=== PATIENT | male | born 2005 | race Caucasian/White ===

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

== ENCOUNTER 2023-08-20 09:24 | Emergency (ER) | payer OTHER ==
[~2023-08-20] VITALS: Ht 170.2 cm; Wt 72.6 kg
[~2023-08-20 09:24] MED LIST changes: +GUAI600T33 PO; +NASAL DECONGEST30 ML; +TRAZ50 PO
[2023-08-20 12:22] VITALS: BP 126/77
== END 2023-08-20 12:20 | disposition home or self-care (01) ==
LOC: ER 09:24
DX: R51.9 Headache, unspecified (principal); R11.0 Nausea; F10.99 Alcohol use, unspecified with unspecified alcohol-induced disorder; F17.200 Nicotine dependence, unspecified, uncomplicated; F12.90 Cannabis use, unspecified, uncomplicated; J45.909 Unspecified asthma, uncomplicated; G47.00 Insomnia, unspecified; F90.9 Attention-deficit hyperactivity disorder, unspecified type; Z79.899 Other long term (current) drug therapy; Z88.8 Allergy status to other drugs, medicaments and biological substances; Z87.828 Personal history of other (healed) physical injury and trauma
CPT/HCPCS: 96361; 96374; 96375; 99283-25; J1885; J2405; J7030

== ENCOUNTER 2023-10-27 19:55 | Emergency (ER) | payer OTHER ==
[~2023-10-27] VITALS: Ht 167.6 cm; Wt 54.4 kg
[2023-10-27 20:30] LABS: BASOPHILS ABSOLUTE AUTO 0.04 K/mm3 (0.00-0.23); BASOPHILS PERCENT AUTO 0 % (0-2); EOSINOPHILS ABSOLUTE AUTO 0.15 K/mm3 (0.00-0.68); EOSINOPHILS PERCENT AUTO 1 % (0-6); Hematocrit 41.9 % (37.0-53.0); Hemoglobin 14.3 g/dL (13.5-17.5); IMMATURE GRAN ABSOLUTE AUTO 0.01 K/mm3 (0.00-0.10); IMMATURE GRAN PERCENT AUTO 0 % (0-1); LYMPHOCYTES ABSOLUTE AUTO 3.43 K/mm3 (0.84-5.20); LYMPHOCYTES PERCENT AUTO 26 % (21-46); MONOCYTES ABSOLUTE AUTO 1.07 K/mm3 (0.16-1.47); MONOCYTES PERCENT AUTO 8 % (4-13); Mean Corpuscular HGB 32.4 pg (26.0-34.0); Mean Corpuscular HGB Conc 34.1 g/dL (31.5-36.5); Mean Corpuscular Volume 95 fL (80-100); Mean Platelet Volume 9.8 fL (9.1-12.4); NEUTROPHILS ABSOLUTE AUTO 8.38 K/mm3 (1.96-9.15); NEUTROPHILS PERCENT AUTO 64 % (41-73); Platelet Count 202 K/mm3 (150-400); RDW Coefficient Variation 11.9 % (11.7-14.2); RDW Standard Deviation 41.4 fL (35.1-46.3); Red Blood Cell Count 4.42 M/mm3 (4.30-5.90); White Blood Cell Count 13.08 K/mm3 (4.00-11.30)
[2023-10-27 20:48] LABS: International Normalized Ratio 1.13; Prothrombin Time Results 11.8 Sec (9.7-11.5)
[2023-10-27 20:56] LABS: Albumin, Blood 4.4 g/dL (3.4-5.0); Albumin/Globulin Ratio 1.5 (0.8-1.8); Bilirubin, Total 0.3 mg/dL (0.1-1.0); Bun/Creatinine Ratio 13.8 (12.0-20.0); Calcium, Blood 9.5 mg/dL (8.5-10.1); Creatinine, Blood 0.95 mg/dL (0.60-1.20); Magnesium, Blood 2.2 mg/dL (1.6-2.4); Potassium, Blood 3.5 mmol/L (3.5-5.5); Total Protein, Blood 7.4 g/dL (6.4-8.2)
[2023-10-27] MEDS ORDERED: Ondansetron HCl 2 MG / ML 2ML Vial IV ONE (22:00)
[2023-10-27] MEDS ORDERED: Famotidine 10 MG/ML 2ML Vial IV ONE (22:00)
[2023-10-27] MEDS ORDERED: ONDA4ODT MM (22:02)
[2023-10-27 22:15] VITALS: BP 119/68
== END 2023-10-27 22:30 | disposition home or self-care (01) ==
LOC: ER 19:55
PROVIDERS: Physician Assistant
DX: K52.9 Noninfective gastroenteritis and colitis, unspecified (principal); K22.6 Gastro-esophageal laceration-hemorrhage syndrome; F17.200 Nicotine dependence, unspecified, uncomplicated; J45.909 Unspecified asthma, uncomplicated; F90.9 Attention-deficit hyperactivity disorder, unspecified type; G47.00 Insomnia, unspecified; Z88.8 Allergy status to other drugs, medicaments and biological substances
CPT/HCPCS: 74177; 80053; 83605; 83735; 85025; 85610; 85730; 96374-59; 96375; 99284-25; J2405; Q9967

== ENCOUNTER 2024-01-08 13:13 | Emergency (ER) | payer OTHER ==
[~2024-01-08] VITALS: Ht 170.2 cm; Wt 63.5 kg
[~2024-01-08 13:13] MED LIST changes: +ONDA4ODT MM; +RISP.5
[2024-01-08 13:20] VITALS: BP 134/82
[2024-01-08 13:44] LABS: BASOPHILS ABSOLUTE AUTO 0.04 K/mm3 (0.00-0.23); BASOPHILS PERCENT AUTO 1 % (0-2); EOSINOPHILS ABSOLUTE AUTO 0.23 K/mm3 (0.00-0.68); EOSINOPHILS PERCENT AUTO 3 % (0-6); Hematocrit 43.7 % (37.0-53.0); Hemoglobin 14.8 g/dL (13.5-17.5); IMMATURE GRAN ABSOLUTE AUTO 0.01 K/mm3 (0.00-0.10); IMMATURE GRAN PERCENT AUTO 0 % (0-1); LYMPHOCYTES ABSOLUTE AUTO 3.27 K/mm3 (0.84-5.20); LYMPHOCYTES PERCENT AUTO 43 % (21-46); MONOCYTES ABSOLUTE AUTO 0.68 K/mm3 (0.16-1.47); MONOCYTES PERCENT AUTO 9 % (4-13); Mean Corpuscular HGB 31.6 pg (26.0-34.0); Mean Corpuscular HGB Conc 33.9 g/dL (31.5-36.5); Mean Corpuscular Volume 93 fL (80-100); Mean Platelet Volume 9.3 fL (9.1-12.4); NEUTROPHILS ABSOLUTE AUTO 3.39 K/mm3 (1.96-9.15); NEUTROPHILS PERCENT AUTO 45 % (41-73); Platelet Count 203 K/mm3 (150-400); RDW Coefficient Variation 11.9 % (11.7-14.2); RDW Standard Deviation 40.8 fL (35.1-46.3); Red Blood Cell Count 4.68 M/mm3 (4.30-5.90); White Blood Cell Count 7.62 K/mm3 (4.00-11.30)
[2024-01-08 14:03] LABS: Albumin, Blood 4.6 g/dL (3.4-5.0); Albumin/Globulin Ratio 1.4 (0.8-1.8); Bilirubin, Total 0.6 mg/dL (0.1-1.0); Bun/Creatinine Ratio 14.1 (12.0-20.0); Calcium, Blood 9.1 mg/dL (8.5-10.1); Creatinine, Blood 0.92 mg/dL (0.60-1.20); Globulin, Blood 3.2 g/dL (2.2-4.0); Potassium, Blood 3.3 mmol/L (3.5-5.5); Total Protein, Blood 7.8 g/dL (6.4-8.2)
[2024-01-08 14:32] LABS: Source, Urine Clean Catch
[2024-01-08 14:37] LABS: Appearance, Urine Clear (Clear); Bilirubin, Urine Neg (Neg); Blood, Urine Neg (Neg); Glucose Qualitative, Urine Neg (Neg); Ketones, Urine 1+ (Neg); Leukocyte Esterase, Urine Neg (Neg); Nitrite, Urine Neg (Neg); Protein, Urine Neg (Neg); Urobilinogen, Urine NORM (Normal)
[2024-01-08 14:38] LABS: Color, Urine Pale Yellow (P-Yellow)
[2024-01-08 15:10] LABS: Influenza A, PCR NEGATIVE (NEGATIVE); Influenza B, PCR NEGATIVE (NEGATIVE); Resp Syncytial Virus, PCR NEGATIVE (NEGATIVE); SARS-Cov-2 (COVID-19) PCR, MMC NEGATIVE (NEGATIVE)
[2024-01-08] MEDS ORDERED: PEPCID40 MG PO (16:35)
[2024-01-11 09:37] LABS: APTIMA MEDIA TYPE Urine; C. TRACHOMATIS BY TMA Negative (Negative); N. GONORRHOEAE BY TMA Negative (Negative); SPECIMEN SOURCE Urine
== END 2024-01-08 17:00 | disposition home or self-care (01) ==
LOC: ER 13:13
PROVIDERS: Student in an Organized Health Care Education/Training Program
DX: R10.12 Left upper quadrant pain (principal); R07.9 Chest pain, unspecified; F20.9 Schizophrenia, unspecified; Z88.8 Allergy status to other drugs, medicaments and biological substances; Z79.899 Other long term (current) drug therapy; G47.00 Insomnia, unspecified; J45.909 Unspecified asthma, uncomplicated; F17.200 Nicotine dependence, unspecified, uncomplicated
CPT/HCPCS: 0241U; 80053; 81003; 83690; 85025; 87491; 87591; 99284

== ENCOUNTER → 2024-01-09 | Outpatient (CLI) | payer OTHER ==
[~2024-01-09] MED LIST changes: +PEPCID40 MG PO
== END | disposition home or self-care (01) ==
LOC: LAB 11:14 → LAB SHORT 11:14
DX: R89.1 Abnormal level of hormones in specimens from other organs, systems and tissues (principal)
CPT/HCPCS: 36415

== ENCOUNTER → 2024-02-11 | Outpatient (CLI) | payer OTHER ==
[2024-02-13 13:24] LABS: C DIFFICILE DNA NEGATIVE (Negative)
[2024-02-15 18:45] LABS: LACTOFERRIN,FECAL BY ELISA Negative (Negative)
== END ==
LOC: LAB SHORT 14:11 → LAB 14:11
PROVIDERS: Physician Assistant
DX: R63.4 Abnormal weight loss (principal); K62.5 Hemorrhage of anus and rectum; R10.84 Generalized abdominal pain; R11.2 Nausea with vomiting, unspecified
CPT/HCPCS: 83630; 87338; 87493

== ENCOUNTER 2024-04-25 02:29 | Emergency (ER) | payer OTHER ==
[2024-04-25] MEDS ORDERED: Mag Hydrox/AL Hydrox/Simeth 30 ML UDC PO ONE (05:35)
[2024-04-25] MEDS ORDERED: Lidocaine 2% Viscous Soln 15 ML UDC PO ONE (05:35)
[2024-04-25 05:46] VITALS: BP 115/82
== END 2024-04-25 05:54 | disposition home or self-care (01) ==
LOC: ER 02:29
DX: K21.9 Gastro-esophageal reflux disease without esophagitis (principal); Z88.8 Allergy status to other drugs, medicaments and biological substances; Z79.899 Other long term (current) drug therapy; G47.00 Insomnia, unspecified; F17.200 Nicotine dependence, unspecified, uncomplicated
CPT/HCPCS: 99282; A9270

== ENCOUNTER 2024-06-22 22:16 | Emergency (ER) | payer OTHER ==
[~2024-06-22] VITALS: Ht 172.7 cm; Wt 64.9 kg
[2024-06-22 22:21] VITALS: BP 123/78
[2024-06-22] MEDS ORDERED: Clonazepam0.5 M1 PO (22:28)
[2024-06-22] MEDS ORDERED: Ibuprofen 600 MG Tab PO ONE (23:00)
[2024-06-22] MEDS ORDERED: Acetaminophen 500 MG Tab PO ONE (23:00)
== END 2024-06-22 23:30 | disposition home or self-care (01) ==
LOC: ER 22:16
DX: S80.812A Abrasion, left lower leg, initial encounter (principal); G47.00 Insomnia, unspecified; J45.909 Unspecified asthma, uncomplicated; F17.200 Nicotine dependence, unspecified, uncomplicated; W22.8XXA Striking against or struck by other objects, initial encounter; Z79.899 Other long term (current) drug therapy
CPT/HCPCS: 73562-LT; 73590; 99284-25; A9270

== ENCOUNTER 2024-11-07 06:02 | Observation (INO) | payer OTHER ==
[~2024-11-07] VITALS: Ht 177.8 cm; Wt 77.1 kg
[2024-11-07] VITALS (14 sets, daily range): BP systolic 95–133; BP diastolic 39–86
[~2024-11-07 06:02] MED LIST changes: +Clonazepam0.5 M1 PO
[2024-11-07] MEDS ORDERED: HYDROmorphone HCl/Pf 1MG SYR IV ONE ×2 (06:30→09:10)
[2024-11-07] MEDS ORDERED: Ondansetron HCl 2 MG / ML 2ML Vial IV ONE (06:30)
[2024-11-07] MEDS ORDERED: LORazepam 2 MG/ML 1ML Injection IV ONE ×2 (06:30→07:20)
[2024-11-07] MEDS ORDERED: Lactated Ringer's 1,000 ML IV ONE ×2 (07:20→13:58)
[2024-11-07 07:30] LABS: BASOPHILS ABSOLUTE AUTO 0.03 K/mm3 (0.00-0.23); BASOPHILS PERCENT AUTO 0 % (0-2); EOSINOPHILS ABSOLUTE AUTO 0.14 K/mm3 (0.00-0.68); EOSINOPHILS PERCENT AUTO 2 % (0-6); Hematocrit 42.1 % (37.0-53.0); Hemoglobin 14.8 g/dL (13.5-17.5); IMMATURE GRAN ABSOLUTE AUTO 0.02 K/mm3 (0.00-0.10); IMMATURE GRAN PERCENT AUTO 0 % (0-1); LYMPHOCYTES ABSOLUTE AUTO 2.96 K/mm3 (0.84-5.20); LYMPHOCYTES PERCENT AUTO 33 % (21-46); MONOCYTES ABSOLUTE AUTO 1.13 K/mm3 (0.16-1.47); MONOCYTES PERCENT AUTO 13 % (4-13); Mean Corpuscular HGB 32.6 pg (26.0-34.0); Mean Corpuscular HGB Conc 35.2 g/dL (31.5-36.5); Mean Corpuscular Volume 93 fL (80-100); Mean Platelet Volume 10.6 fL (9.1-12.4); NEUTROPHILS ABSOLUTE AUTO 4.68 K/mm3 (1.96-9.15); NEUTROPHILS PERCENT AUTO 52 % (41-73); Platelet Count 248 K/mm3 (150-400); RDW Coefficient Variation 12.3 % (11.7-14.2); RDW Standard Deviation 42.5 fL (35.1-46.3); Red Blood Cell Count 4.54 M/mm3 (4.30-5.90); White Blood Cell Count 8.96 K/mm3 (4.00-11.30)
[2024-11-07] MEDS ORDERED: CeFAZolin Sodium 1,000 MG in NS 50 ML IV ONE ×2 (07:30→11:35)
[2024-11-07 07:40] LABS: Albumin/Globulin Ratio 1.1 (0.8-1.8); Bilirubin, Total 0.3 mg/dL (0.1-1.0); Bun/Creatinine Ratio 10.4 (12.0-20.0); Calcium, Blood 9.1 mg/dL (8.5-10.1); Creatinine, Blood 0.97 mg/dL (0.60-1.20); Globulin, Blood 3.8 g/dL (2.2-4.0); Potassium, Blood 3.6 mmol/L (3.5-5.5); Total Protein, Blood 7.8 g/dL (6.4-8.2)
[2024-11-07] MEDS ORDERED: FLU VACC TS2024-25(6MOS UP)/PF 45 MCG/0.5 ML SYRINGE IM SCH (09:10)
[2024-11-07] MEDS ORDERED: HYDROcodone 5-APAP 325 TAB PO PRN ×2 (09:10→14:15)
[2024-11-07] MEDS ORDERED: FentaNYL Citrate 50 MCG/ML 2 ML Injection IV PRN (09:10)
[2024-11-07] MEDS ORDERED: Ondansetron 4 MG TAB PO PRN (09:10)
[2024-11-07] MEDS ORDERED: Lactated Ringer's 1,000 ML IV SCH ×2 (09:10→11:10)
[2024-11-07] MEDS ORDERED: QUETIAPINE FUM10011 PO (09:49)
[2024-11-07] MEDS ORDERED: ALPRAZOLAM0.5 M1 PO (09:51)
[2024-11-07] MEDS ORDERED: CeFAZolin 1000MG in D5W 50 ML IV ONE (11:35)
[2024-11-07] MEDS ORDERED: propofoL 20 ML IV ONE (11:44)
[2024-11-07] MEDS ORDERED: FentaNYL Citrate 50 MCG/ML 2 ML Injection ONE ×2 (11:44→14:21)
[2024-11-07] MEDS ORDERED: Ondansetron HCl 2 MG / ML 2ML Vial ONE (11:48)
[2024-11-07] MEDS ORDERED: Rocuronium Bromide 10 MG/ML 5ML Injection IV ONE (11:48)
[2024-11-07] MEDS ORDERED: Dexamethasone Sod Phos 10 MG/ML 1ML VIAL ONE (11:48)
[2024-11-07] MEDS ORDERED: Bupivacaine 0.5% HCl 5 MG/ML 30MLVIAL ONE (12:53)
[2024-11-07] MEDS ORDERED: Ketorolac Tromethamine 30mg Vial ONE (13:01)
[2024-11-07] MEDS ORDERED: Sugammadex Sodium 200 MG/2ML SDV (100 MG/ML) ONE (13:02)
[2024-11-07] MEDS ORDERED: Midazolam HCl 1MG / ML 2ML Vial IV ONE (13:05)
[2024-11-07] MEDS ORDERED: Midazolam HCl 1MG / ML 2ML Vial ONE (13:10)
--- NOTE | 2024-11-07 14:12 | NUR ---
11/07/24 1412 Tatiana Patel 1G ANCEF GIVEN BY ELLIS Alvarado CRNA
--- NOTE | 2024-11-07 15:54 | NUR ---
1507: PT RATES PAIN 02/12, NORCO GIVEN ORDERED, SEE NOV. 155: Discharge instructions reviewed with patient. Patient verbalizes understanding. Copy given to patient to take home. Dressing to procedure site clean, dry, intact with no visible drainage, swelling, erythema or bruising noted. DRESSING & PACKING CHANGED AT BEDSIDE W/ PT'S MOM WATCHING. PT WILL REQUIRE DAILY PACKING/DRESSING CHANGES AT HOME & NEEDED. DEMONSTRATION GIVEN TO PT'S MOTHER WHO VERBALIZED UNDERSTANDING. PT GOING HOME W/ EXTRA DRESSING SUPPLIES: 4x4s, MEDIPORE, PACKING, QTIPS. Discharged via wheelchair to private car for ride home.
== END 2024-11-07 11:21 | disposition other institution (70) ==
LOC: ER 06:02 → ERHOLD 06:03
PROVIDERS: Emergency Medicine; ADMIT Surgery
PROC: 0H98XZZ Drainage of Buttock Skin, External Approach (ICD-10-PCS; principal; 2024-11-07 12:00)
DX: L05.01 Pilonidal cyst with abscess (principal); F90.9 Attention-deficit hyperactivity disorder, unspecified type; J45.909 Unspecified asthma, uncomplicated; F20.9 Schizophrenia, unspecified; F17.200 Nicotine dependence, unspecified, uncomplicated; Z79.899 Other long term (current) drug therapy; Z88.8 Allergy status to other drugs, medicaments and biological substances
CPT/HCPCS: 10081; 72193; 80053; 82947; 85025; 96361; 96365; 96375; 96376; 99285-25; A9270; G0378; J0690; J1100; J1171; J1885; J2060; J2250; J2405; J2704; J3010; J7120; Q9967

== ENCOUNTER 2025-01-12 20:40 | Emergency (ER) | payer OTHER ==
[~2025-01-12] VITALS: Ht 172.7 cm; Wt 74.4 kg
[~2025-01-12 20:40] MED LIST changes: +ALPRAZOLAM0.5 M1 PO; +QUETIAPINE FUM10011 PO
[2025-01-12 20:42] VITALS: BP 135/86
[2025-01-12 21:03] LABS: BASOPHILS ABSOLUTE AUTO 0.02 K/mm3 (0.00-0.23); BASOPHILS PERCENT AUTO 0 % (0-2); EOSINOPHILS ABSOLUTE AUTO 0.23 K/mm3 (0.00-0.68); EOSINOPHILS PERCENT AUTO 4 % (0-6); Hematocrit 41.1 % (37.0-53.0); Hemoglobin 13.8 g/dL (13.5-17.5); IMMATURE GRAN ABSOLUTE AUTO 0.03 K/mm3 (0.00-0.10); IMMATURE GRAN PERCENT AUTO 1 % (0-1); LYMPHOCYTES ABSOLUTE AUTO 3.52 K/mm3 (0.84-5.20); LYMPHOCYTES PERCENT AUTO 58 % (21-46); MONOCYTES ABSOLUTE AUTO 0.92 K/mm3 (0.16-1.47); MONOCYTES PERCENT AUTO 15 % (4-13); Mean Corpuscular HGB 31.8 pg (26.0-34.0); Mean Corpuscular HGB Conc 33.6 g/dL (31.5-36.5); Mean Corpuscular Volume 95 fL (80-100); Mean Platelet Volume 9.5 fL (9.1-12.4); NEUTROPHILS ABSOLUTE AUTO 1.31 K/mm3 (1.96-9.15); NEUTROPHILS PERCENT AUTO 22 % (41-73); Platelet Count 188 K/mm3 (150-400); RDW Coefficient Variation 12.3 % (11.7-14.2); RDW Standard Deviation 43.4 fL (35.1-46.3); Red Blood Cell Count 4.34 M/mm3 (4.30-5.90); White Blood Cell Count 6.03 K/mm3 (4.00-11.30)
[2025-01-12 21:23] LABS: Albumin/Globulin Ratio 1.2 (0.8-1.8); Bilirubin, Total 0.2 mg/dL (0.1-1.0); Bun/Creatinine Ratio 11.4 (12.0-20.0); Calcium, Blood 9.1 mg/dL (8.5-10.1); Creatinine, Blood 0.79 mg/dL (0.60-1.20); Globulin, Blood 3.2 g/dL (2.2-4.0); Potassium, Blood 3.6 mmol/L (3.5-5.5); Total Protein, Blood 7.2 g/dL (6.4-8.2)
[2025-01-12] MEDS ORDERED: HYDROCODONE-AC1 EA19 PO (21:39)
[2025-01-12] MEDS ORDERED: AMOX-CLAV 875-1 EAC5 PO (21:39)
[2025-01-12] MEDS ORDERED: SULFAMETHOXAZO1 EAC1 PO (21:39)
[2025-01-13] MEDS ORDERED: HYDCOR2.5C PR (10:22)
[2025-01-13] MEDS ORDERED: OXAYDO5 M1 PO (12:35)
[2025-01-13] MEDS ORDERED: ONDA4ODT MM (12:37)
[2025-01-17] MEDS ORDERED: HYDMOR2 PO ×3 (20:36→20:42)
== END 2025-01-13 00:47 | disposition left against medical advice (07) ==
LOC: ER 20:40
PROVIDERS: Student in an Organized Health Care Education/Training Program
DX: K92.0 Hematemesis (principal); L05.91 Pilonidal cyst without abscess; Z53.29 Procedure and treatment not carried out because of patient's decision for other reasons; Z79.2 Long term (current) use of antibiotics; Z79.899 Other long term (current) drug therapy; Z88.8 Allergy status to other drugs, medicaments and biological substances; J45.909 Unspecified asthma, uncomplicated; F17.200 Nicotine dependence, unspecified, uncomplicated
CPT/HCPCS: 74177; 80053; 83690; 85025; 86850; 86900; 86901; 99285-25; Q9967

== ENCOUNTER 2025-01-13 09:53 | Emergency (ER) | payer OTHER ==
[~2025-01-13] VITALS: Ht 172.7 cm; Wt 74.4 kg
[~2025-01-13 09:53] MED LIST changes: +AMOX-CLAV 875-1 EAC5 PO; +HYDROCODONE-AC1 EA19 PO; +SULFAMETHOXAZO1 EAC1 PO
[2025-01-13 10:02] VITALS: BP 150/85
[2025-01-13] MEDS ORDERED: HYDCOR2.5C PR (10:22)
[2025-01-13] MEDS ORDERED: OXAYDO5 M1 PO (12:35)
[2025-01-13] MEDS ORDERED: ONDA4ODT MM (12:37)
== END 2025-01-13 10:17 | disposition home or self-care (01) ==
LOC: ER 09:53
DX: K64.8 Other hemorrhoids (principal); L05.91 Pilonidal cyst without abscess; K92.0 Hematemesis; J45.909 Unspecified asthma, uncomplicated; F17.200 Nicotine dependence, unspecified, uncomplicated; Z88.8 Allergy status to other drugs, medicaments and biological substances
CPT/HCPCS: 99283

== ENCOUNTER 2025-01-17 16:36 | Emergency (ER) | payer OTHER ==
[~2025-01-17] VITALS: Ht 172.7 cm; Wt 68.0 kg
[2025-01-17 17:45] VITALS: BP 139/81
== END 2025-01-17 21:20 | disposition home or self-care (01) ==
LOC: ER 16:36
DX: L05.91 Pilonidal cyst without abscess (principal); J45.909 Unspecified asthma, uncomplicated; G47.00 Insomnia, unspecified; F17.200 Nicotine dependence, unspecified, uncomplicated; Z79.899 Other long term (current) drug therapy; Z88.1 Allergy status to other antibiotic agents; Z88.8 Allergy status to other drugs, medicaments and biological substances

== ENCOUNTER 2025-01-20 12:35 | Emergency (ER) | payer OTHER ==
[~2025-01-20] VITALS: Ht 170.2 cm; Wt 63.5 kg
[~2025-01-20 12:35] MED LIST changes: +HYDCOR2.5C PR; +HYDMOR2 PO; +OXAYDO5 M1 PO
[2025-01-20] MEDS ORDERED: Dilaudid 2 mg Ta2 MG PO (13:10)
[2025-01-20 14:12] VITALS: BP 122/54
[2025-01-20] MEDS ORDERED: Bactrim Ds Tab1 EACH PO (14:43)
[2025-01-20] MEDS ORDERED: Ketorolac Tromethamine 30mg Vial IM ONE (14:45)
[2025-01-20] MEDS ORDERED: Trimethoprim/Sulfamethoxazole DS Tab PO ONE (14:45)
== END 2025-01-20 15:42 | disposition home or self-care (01) ==
LOC: ER 12:35
DX: L05.91 Pilonidal cyst without abscess (principal); J45.909 Unspecified asthma, uncomplicated
CPT/HCPCS: 99283; A9270; J1885

== ENCOUNTER 2025-04-05 17:24 | Emergency (ER) | payer OTHER ==
[~2025-04-05] VITALS: Ht 170.2 cm; Wt 77.1 kg
[~2025-04-05 17:24] MED LIST changes: +Bactrim Ds Tab1 EACH PO; +Dilaudid 2 mg Ta2 MG PO
[2025-04-05 17:29] VITALS: BP 131/89
[2025-04-05] MEDS ORDERED: Ketorolac Tromethamine 15mg Vial IM ONE (19:35)
== END 2025-04-05 20:08 | disposition home or self-care (01) ==
LOC: ER 17:24
DX: J02.9 Acute pharyngitis, unspecified (principal); J45.909 Unspecified asthma, uncomplicated; G47.00 Insomnia, unspecified; F17.200 Nicotine dependence, unspecified, uncomplicated; Z79.899 Other long term (current) drug therapy; Z88.1 Allergy status to other antibiotic agents
CPT/HCPCS: 99283; J1885

== ENCOUNTER 2025-04-13 13:59 | Emergency (ER) | payer OTHER ==
[~2025-04-13] VITALS: Ht 170.2 cm; Wt 81.7 kg
[2025-04-13] MEDS ORDERED: Ketorolac Tromethamine 15mg Vial IV ONE (14:15)
[2025-04-13] MEDS ORDERED: HYDR1TAB94 PO (15:08)
[2025-04-13] MEDS ORDERED: HYDROcodone 5-APAP 325 TAB PO ONE (15:10)
[2025-04-13 15:42] VITALS: BP 121/90
== END 2025-04-13 15:45 | disposition home or self-care (01) ==
LOC: ER 13:59
DX: L05.91 Pilonidal cyst without abscess (principal); J45.909 Unspecified asthma, uncomplicated; G47.00 Insomnia, unspecified; F17.200 Nicotine dependence, unspecified, uncomplicated; Z79.899 Other long term (current) drug therapy; Z88.1 Allergy status to other antibiotic agents
CPT/HCPCS: A9270; J1885

== ENCOUNTER 2025-05-08 09:13 | Emergency (ER) | payer OTHER ==
[~2025-05-08] VITALS: Ht 170.2 cm; Wt 79.4 kg
[~2025-05-08 09:13] MED LIST changes: +HYDR1TAB94 PO
[2025-05-08] MEDS ORDERED: NS 1,000 ML IV SCH (09:50)
[2025-05-08 10:01] LABS: BASOPHILS ABSOLUTE AUTO 0.03 K/mm3 (0.00-0.23); BASOPHILS PERCENT AUTO 0 % (0-2); EOSINOPHILS ABSOLUTE AUTO 0.13 K/mm3 (0.00-0.68); EOSINOPHILS PERCENT AUTO 2 % (0-6); Hematocrit 43.7 % (37.0-53.0); Hemoglobin 14.8 g/dL (13.5-17.5); IMMATURE GRAN ABSOLUTE AUTO 0.03 K/mm3 (0.00-0.10); IMMATURE GRAN PERCENT AUTO 0 % (0-1); LYMPHOCYTES ABSOLUTE AUTO 3.09 K/mm3 (0.84-5.20); LYMPHOCYTES PERCENT AUTO 37 % (21-46); MONOCYTES ABSOLUTE AUTO 0.65 K/mm3 (0.16-1.47); MONOCYTES PERCENT AUTO 8 % (4-13); Mean Corpuscular HGB Conc 33.9 g/dL (31.5-36.5); Mean Corpuscular Volume 92 fL (80-100); NEUTROPHILS ABSOLUTE AUTO 4.39 K/mm3 (1.96-9.15); NEUTROPHILS PERCENT AUTO 53 % (41-73); NRBC ABSOLUTE 0.00 K/mm3 (0.00-0.02); NRBC Auto 0.0 /100 WBC (0.0-0.2); Platelet Count 215 K/mm3 (150-400); RDW Coefficient Variation 12.9 % (11.7-14.2); RDW Standard Deviation 43.8 fL (35.1-46.3)
[2025-05-08] MEDS ORDERED: CLONAZEPAM2 MG PO (10:05)
[2025-05-08] MEDS ORDERED: GUANFACINE HCL E3 MG PO (10:06)
[2025-05-08] MEDS ORDERED: ONDA4 PO (10:07)
[2025-05-08 10:22] LABS: Alanine Aminotransfer (ALT/SGP 15.0 U/L (12-78); Albumin, Blood 4.1 g/dL (3.4-5.0); Albumin/Globulin Ratio 1.1 (0.8-1.8); Anion Gap 10.0 mmol/L (3-11); Aspartate Aminotrans (AST/SGOT 14.0 U/L (12-37); Bilirubin, Total 0.3 mg/dL (0.1-1.0); Blood Urea Nitrogen 10.0 mg/dL (8-24); CO2, Blood 23.0 mmol/L (21-32); Calcium, Blood 8.9 mg/dL (8.5-10.1); Chloride, Blood 107.0 mmol/L (98-108); Creatinine, Blood 0.89 mg/dL (0.60-1.20); Globulin, Blood 3.6 g/dL (2.2-4.0); Glucose, Blood 108.0 mg/dL (70-99); Potassium, Blood 3.6 mmol/L (3.5-5.5); Sodium, Blood 136.0 mmol/L (136-145); Total Protein, Blood 7.7 g/dL (6.4-8.2)
[2025-05-08] MEDS ORDERED: Ondansetron HCl 2 MG / ML 2ML Vial IV ONE (10:25)
[2025-05-08 10:59] LABS: Source, Urine Clean Catch
[2025-05-08 11:00] VITALS: BP 100/60
[2025-05-08 11:02] LABS: Bilirubin, Urine Neg (Neg); Glucose Qualitative, Urine Neg (Neg); Ketones, Urine Neg (Neg); Leukocyte Esterase, Urine Neg (Neg); Protein, Urine Neg (Neg); Specific Gravity, Urine 1.010 (1.003-1.022); Urobilinogen, Urine NORM (Normal)
[2025-05-08 11:16] LABS: Color, Urine Pale Yellow (P-Yellow)
[2025-05-08] MEDS ORDERED: Ketorolac Tromethamine 15mg Vial IV ONE (11:35)
== END 2025-05-08 13:10 | disposition home or self-care (01) ==
LOC: ER 09:13
PROVIDERS: Physician Assistant
DX: L05.91 Pilonidal cyst without abscess (principal); K52.9 Noninfective gastroenteritis and colitis, unspecified; J45.909 Unspecified asthma, uncomplicated; F17.200 Nicotine dependence, unspecified, uncomplicated; Z88.8 Allergy status to other drugs, medicaments and biological substances; Z79.899 Other long term (current) drug therapy
CPT/HCPCS: 74177; 80053; 81003; 83690; 85025; 96361; 96374-59; 99284-25; J1885; J2405; J7030; Q9967

== ENCOUNTER 2025-05-16 01:29 | Emergency (ER) | payer OTHER ==
[~2025-05-16] VITALS: Ht 167.6 cm; Wt 74.8 kg
[~2025-05-16 01:29] MED LIST changes: +CLONAZEPAM2 MG PO; +GUANFACINE HCL E3 MG PO; +ONDA4 PO
[2025-05-16 01:36] VITALS: BP 139/95
[2025-05-16 02:08] LABS: CORONAVIRUS COVID-19 AG Negative (NEGATIVE)
== END 2025-05-16 02:29 | disposition home or self-care (01) ==
LOC: ER 01:29
PROVIDERS: Student in an Organized Health Care Education/Training Program
DX: R05.9 Cough, unspecified (principal); J45.909 Unspecified asthma, uncomplicated; F17.200 Nicotine dependence, unspecified, uncomplicated; Z88.0 Allergy status to penicillin; Z79.899 Other long term (current) drug therapy; Z88.8 Allergy status to other drugs, medicaments and biological substances
CPT/HCPCS: 87428-QW; 99283

== ENCOUNTER 2025-09-02 21:39 | Emergency (ER) | payer OTHER ==
[~2025-09-02] VITALS: Ht 170.2 cm; Wt 68.0 kg
[2025-09-02 21:44] VITALS: BP 132/66
== END 2025-09-03 01:38 | disposition home or self-care (01) ==
LOC: ER 21:39
DX: S61.431A Puncture wound without foreign body of right hand, initial encounter (principal); S61.012A Laceration without foreign body of left thumb without damage to nail, initial encounter; R55 Syncope and collapse; F17.200 Nicotine dependence, unspecified, uncomplicated; J45.909 Unspecified asthma, uncomplicated; W26.8XXA Contact with other sharp object(s), not elsewhere classified, initial encounter; Z88.8 Allergy status to other drugs, medicaments and biological substances; Z79.899 Other long term (current) drug therapy
CPT/HCPCS: 73130; 90471; 90715; 93005; 93010; 99283-25; A9270